=== PATIENT | male | born 1970 | race Caucasian/White ===

== ENCOUNTER 2018-09-09 14:33 | Inpatient (IN) | payer BC, OTHER ==
[~2018-09-09 14:33] MED LIST: Iopamidol 370 76% 100 ML VIAL ONE
[2018-09-09 14:52] LABS: #Basophils 0.1 thou/uL (0.0-0.2); #Eosinphils 0.2 thou/uL (0.0-0.7); #Lymphocytes 2.7 thou/uL (1.20-3.40); #Monocytes 1.3 thou/uL (0.11-0.59); #Neutrophils 12.6 thou/uL (1.40-6.50); %Basophils 0.8 % (0.0-1.0); %Eosinophils 1.1 % (0.0-10.0); %Lymphocytes 16.1 % (21.0-51.0); %Monocytes 7.7 % (0.0-10.0); %Neutrophils 74.3 % (42.0-75.0); Hemoglobin 16.1 g/dL (14.0-18.0); Mean Corpuscular HGB CONC 32.4 g/dL (32.0-36.0); Mean Corpuscular Hemoglobin 26.9 pg (27.0-31.0); Mean Corpuscular Volume 82.8 fL (78.0-98.0); Mean Platelet Volume 8.6 fL (7.4-10.4); Platelet Count 329 thou/uL (130-400); RBC Distribution Width 16.6 % (11.5-14.5); Red Blood Cell (RBC) Count 5.98 mill/uL (4.70-6.10)
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
--- NOTE | 2018-09-09 15:17 | RAD ---
CHEST 1 VIEW: Date: 09/09/18 COMPARISON: None. FINDINGS: There is mild fullness of the vascular pedicle, likely engorgement of the pulmonary venous system and SVC. Mild pulmonary venous congestion. Mild peribronchovascular cuffing. No pneumothorax or large ef fusion. Heart size is enlarged. No acute displaced rib fracture. IMPRESSION: Lung hypoinflation with vascular crowding and likely some pulmonary venous congestion. POS: [facility]
--- NOTE | 2018-09-09 15:20 | RAD ---
RIGHT FEMUR 2 VIEWS: Date: 09/09/18 HISTORY: Fracture. COMPARISON: None. FINDINGS: There is a comminuted mid femoral diaphyseal fracture with posterior displacement of one shaft width with approximately 1.2 cm of overriding. There is cortical irregularity to the inferior pole of the patella, although there may be enthesopath ic change. Seen on the AP view is an abnormal linear lucency through the medial femoral condyle. There is also a curvilinear lucency of the distal femoral metadiaphysis. IMPRESSION: 1. Comminuted mid to proximal femoral shaft fracture with one shaft width posterior displacement wit h 1.2 cm of overriding. 2. Possible nondisplaced fractures of the medial femoral condyle and distal femoral metadiaphysis. D edicated knee radiographs recommended. 3. Possible incomplete avulsion or fracture of the inferior pole patella, for which could be further interrogated with knee radiographs. POS: [facility]
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
[2018-09-09] MEDS ORDERED: Glycopyrrolate 0.2 MG/ML 5 ML SYRINGE ONE (15:26)
[2018-09-09] MEDS ORDERED: Dexamethasone 20 MG/5 ML VIAL ONE (15:26)
[2018-09-09] MEDS ORDERED: Ondansetron PF 4 MG/2 ML Vial ONE (15:26)
[2018-09-09] MEDS ORDERED: PHENYLEPHRINE-NS 100 MCG/ML 10 ML SYRINGE ONE (15:26)
[2018-09-09] MEDS ORDERED: Succinylcholine Chloride 20 MG/ML 10 ml SYRINGE FS ONE (15:26)
[2018-09-09] MEDS ORDERED: Lidocaine 1% PF 5 ML VIAL ONE (15:26)
[2018-09-09] MEDS ORDERED: PROPOFOL 200 MG/20 ML VIAL ONE (15:26)
[2018-09-09] MEDS ORDERED: Ketorolac Tromethamine 30 MG/ML VIAL ONE (15:26)
[2018-09-09] MEDS ORDERED: ePHEDrine/0.9% NaCl/PF SYRINGE 50 mg/10 ml ONE ×2 (15:26→17:43)
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
[2018-09-09 15:48] LABS: ALT (SGPT) 65 U/L (8-55); AST (SGOT) 100 U/L (5-34); Alkaline Phosphatase 76 U/L (40-150); Anion Gap 14 mmol/L (10-20); BUN (Urea Nitrogen) 22 mg/dL (8.9-20.6); Bilirubin, Total 0.5 mg/dL (0.2-1.2); Calc. Creatinine Clearance 0 mL/min (70-130); Calcium 9.4 mg/dL (7.8-10.44); Carbon Dioxide 24 mmol/L (22-29); Chloride 104 mmol/L (98-107); Estimated GFR-MDRD 72; Globulin 2.7 g/dL (2.4-3.5); Glucose 103 mg/dL (70-105); Potassium 4.6 mmol/L (3.5-5.1); Protein, Total 6.7 g/dL (6.0-8.3); Sodium 137 mmol/L (136-145)
[2018-09-09] MEDS ORDERED: CEFAZOLIN 2 GM/50 ML BAG ONE (17:01)
[2018-09-09] MEDS ORDERED: Fentanyl 100 MCG/2 ML VIAL ONE ×2 (17:07→19:17)
[2018-09-09] MEDS ORDERED: Famotidine/PF 20 mg/2ml Vial ONE (17:08)
[2018-09-09] MEDS ORDERED: Midazolam HCl 2 mg/2 ml Vial ONE (17:15)
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
[2018-09-09] MEDS ORDERED: HYDROmorphone 2 MG/ML VIAL SLOW IVP PRN (18:44)
[2018-09-09] MEDS ORDERED: Promethazine HCl 25 MG/ML VIAL SLOW IVP PRN (18:44)
[2018-09-09] MEDS ORDERED: Ondansetron HCl/PF 4 MG/2 ML Vial IVP PRN (18:44)
[2018-09-09] MEDS ORDERED: Meperidine HCl/PF 25 MG/ML VIAL SLOW IVP PRN (18:44)
[2018-09-09] MEDS ORDERED: Promethazine HCl 25 MG/ML VIAL IM PRN ×3 (18:44→20:04)
[2018-09-09] MEDS ORDERED: Morphine 4 MG/ML VIAL SLOW IVP PRN (20:04)
[2018-09-09] MEDS ORDERED: Dextrose 5% in Water 1,000 ML IV PRN (20:04)
[2018-09-09] MEDS ORDERED: Ondansetron PF 4 MG/2 ML Vial IVP PRN (20:04)
[2018-09-09] MEDS ORDERED: Rib Fracture Protocol IV SCH (20:04)
[2018-09-09] MEDS ORDERED: Ondansetron ODT 4 MG TAB PO PRN (20:04)
[2018-09-09] MEDS ORDERED: hydrALAZINE 20 MG/ML VIAL SLOW IVP PRN (20:04)
[2018-09-09] MEDS ORDERED: HYDROcodone/Acetaminophen 10/325 mg Tablet PO PRN (20:04)
[2018-09-09] MEDS ORDERED: Dextrose 50% Abboject 50 ML SYRINGE SLOW IVP PRN (20:04)
[2018-09-09 20:08] VITALS: BMI 30.9
[2018-09-09] MEDS: Famotidine 20 MG TAB PO SCH (21:41)
[2018-09-09] MEDS ORDERED: FLUoxetine HCl 20 MG CAP PO SCH (22:15)
[2018-09-09] MEDS: Sodium Chloride 0.9% 1,000 ML IV SCH (22:22)
--- NOTE | 2018-09-09 23:48 | RAD ---
RIGHT FEMUR RADIOGRAPHS TWO VIEWS 09/09/18 PROVIDED CLINICAL HISTORY: Right femur ORIF. FINDINGS: Multiple spot fluoroscopic images of the right femur demonstrate intramedullary femoral nail with pro ximal and distal interlocking screws transfixing mid shaft femoral fracture. IMPRESSION: As above. POS: [facility]
[2018-09-10] MEDS: CEFAZOLIN 2 GM/50 ML BAG IVPB SCH ×2 (02:38→14:45)
[2018-09-10] MEDS: HYDROcodone/Acetaminophen 10/325 mg Tablet PO PRN ×2 (02:43→07:43)
[2018-09-10 06:44] LABS: #Lymphocytes 0.8 thou/uL (1.20-3.40); #Monocytes 1.3 thou/uL (0.11-0.59); #Neutrophils 12.6 thou/uL (1.40-6.50); %Basophils 0.1 % (0.0-1.0); %Eosinophils 0.1 % (0.0-10.0); %Lymphocytes 5.3 % (21.0-51.0); %Monocytes 8.5 % (0.0-10.0); %Neutrophils 86.1 % (42.0-75.0); Hemoglobin 13.1 g/dL (14.0-18.0); Mean Corpuscular HGB CONC 31.4 g/dL (32.0-36.0); Mean Corpuscular Hemoglobin 26.3 pg (27.0-31.0); Mean Corpuscular Volume 83.8 fL (78.0-98.0); Mean Platelet Volume 9.1 fL (7.4-10.4); Platelet Count 280 thou/uL (130-400); RBC Distribution Width 16.5 % (11.5-14.5); Red Blood Cell (RBC) Count 4.98 mill/uL (4.70-6.10); White Blood Cell (WBC) Count 14.7 thou/uL (4.8-10.8)
[2018-09-10 06:55] LABS: Anion Gap 14 mmol/L (10-20); BUN (Urea Nitrogen) 16 mg/dL (8.9-20.6); Calc. Creatinine Clearance 160 mL/min (70-130); Calcium 8.3 mg/dL (7.8-10.44); Carbon Dioxide 22 mmol/L (22-29); Chloride 104 mmol/L (98-107); Estimated GFR-MDRD Greater than 90; Glucose 152 mg/dL (70-105); Potassium 4.7 mmol/L (3.5-5.1); Sodium 135 mmol/L (136-145)
[2018-09-10] MEDS: Famotidine 20 MG TAB PO SCH ×2 (07:42→20:02)
[2018-09-10] MEDS: Gabapentin 400 MG CAP PO SCH (07:42)
--- NOTE | 2018-09-10 07:55 | RAD ---
RIGHT SHOULDER 3 VIEWS: HISTORY: Shoulder pain. FINDINGS: No evidence of fracture or dislocation. AC joint normally aligned. IMPRESSION: No acute abnormality. POS: [facility]
--- NOTE | 2018-09-10 07:59 | RAD ---
RIGHT HUMERUS 2 VIEWS: INDICATION: Arm pain. IMPRESSION: No acute fracture or subluxation is evident. There is mild degenerative arthrosis of the right AC grover int. Soft tissues appear within normal limits. No radiopaque foreign body is noted. POS: [facility]
[2018-09-10] MEDS: Ibuprofen 600 MG TAB PO SCH ×3 (11:09→20:03)
[2018-09-10] MEDS: Enoxaparin Sodium 40 MG/0.4 ML SYRINGE SC SCH (11:09)
[2018-09-10] MEDS ORDERED: CEFAZOLIN 2 GM in Sodium Chloride 0.9% 100 ML IVPB SCH (12:00)
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
[2018-09-10] MEDS: CEFAZOLIN 2 GM/50 ML-DEXTROSE 2 GM in Premix Bag 1 BAG IVPB SCH ×2 (12:46→19:59)
[2018-09-10] MEDS: traMADol HCl 50 MG TAB PO SCH ×3 (13:30→23:27)
[2018-09-10] MEDS: Acetaminophen 500 MG TAB PO SCH ×3 (13:30→23:27)
[2018-09-10] MEDS: Sodium Chloride 0.9% 1,000 ML IV SCH (14:45)
[2018-09-10] MEDS: FLUoxetine HCl 20 MG CAP PO SCH (20:03)
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
[2018-09-11] MEDS: Cyclobenzaprine 10 MG TAB PO PRN ×2 (00:13→09:40)
[2018-09-11] MEDS: traMADol HCl 50 MG TAB PO PRN ×2 (00:13→06:16)
[2018-09-11] MEDS: traMADol HCl 50 MG TAB PO SCH ×4 (06:16→21:36)
[2018-09-11] MEDS: Acetaminophen 500 MG TAB PO SCH ×4 (06:16→23:43)
[2018-09-11] MEDS: Ibuprofen 600 MG TAB PO SCH ×3 (09:36→20:14)
[2018-09-11] MEDS: Famotidine 20 MG TAB PO SCH ×2 (09:36→20:14)
[2018-09-11] MEDS: Enoxaparin Sodium 40 MG/0.4 ML SYRINGE SC SCH (09:36)
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
[2018-09-11] MEDS: Gabapentin 400 MG CAP PO SCH (14:20)
[2018-09-11] MEDS: Gabapentin 300 MG CAP PO SCH ×2 (15:52→20:14)
[2018-09-11] MEDS: FLUoxetine HCl 20 MG CAP PO SCH (20:13)
[2018-09-12] MEDS: traMADol HCl 50 MG TAB PO SCH ×2 (06:04→06:22)
[2018-09-12] MEDS: Acetaminophen 500 MG TAB PO SCH ×2 (06:16→11:58)
[2018-09-12] MEDS ORDERED: traMADol HCl 50 MG TAB PO SCH ×2 (06:30→12:00)
[2018-09-12 08:12] VITALS: TEMP 98.4
[2018-09-12] MEDS: Famotidine 20 MG TAB PO SCH (09:07)
[2018-09-12] MEDS: Gabapentin 300 MG CAP PO SCH (09:07)
[2018-09-12] MEDS: Enoxaparin Sodium 40 MG/0.4 ML SYRINGE SC SCH (09:07)
[2018-09-12] MEDS: Ibuprofen 600 MG TAB PO SCH (09:08)
[2018-09-12] MEDS: Cyclobenzaprine 10 MG TAB PO PRN (09:20)
[2018-09-12 12:02] VITALS: BP 109/74
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
== END 2018-09-12 15:29 | disposition home or self-care (01) | DRG 481 ==
LOC: ERS 14:33 → SDC 17:16 → SJJU 19:40
PROVIDERS: ADMIT Surgery; ATTEND Surgery
PROC: 0QS804Z Reposition Right Femoral Shaft with Internal Fixation Device, Open Approach (ICD-10-PCS; principal; 2018-09-10)
DX: S72.301A Unspecified fracture of shaft of right femur, initial encounter for closed fracture (principal); S22.42XA Multiple fractures of ribs, left side, initial encounter for closed fracture; S82.001A Unspecified fracture of right patella, initial encounter for closed fracture; S22.41XA Multiple fractures of ribs, right side, initial encounter for closed fracture; S72.434A Nondisplaced fracture of medial condyle of right femur, initial encounter for closed fracture; V64.5XXA Driver of heavy transport vehicle injured in collision with heavy transport vehicle or bus in traffic accident, initial encounter; F17.210 Nicotine dependence, cigarettes, uncomplicated; T14.8XXA Other injury of unspecified body region, initial encounter
CPT/HCPCS: 36415; 70450; 71045; 71260; 72125; 72170; 74177; 76000; 80048; 80053; 85025; 94640; C1713; C1769; G0390; J0131; J0690; J1100; J1650; J1885; J2001; J2250; J2405; J2704; J3010; J7050; J7620; S0028